=== PATIENT | male | born 1980 | race Two or more races ===

== ENCOUNTER 2023-08-16 09:11 | Emergency (ER) | payer BC, OTHER ==
[~2023-08-16] VITALS: Ht 180.3 cm; Wt 97.4 kg
[2023-08-16 10:24] VITALS: BP 134/98; PULSE 68; RESP 18; TEMP 98.2; O2SAT 98
[2023-08-16] MEDS ORDERED: INDO50SU RE ×2 (10:40)
[2023-08-16] MEDS ORDERED: COLC1CAP PO (10:40)
[2023-08-16] MEDS ORDERED: methylPREDNISolone SOD SUCC 125 MG/2 ML VL IM ONE (10:45)
[2023-08-16] MEDS ORDERED: KETOROLAC TROMETH 60MG/2ML VIAL IM ONE (10:45)
[2023-08-16] MEDS ORDERED: INDO-34 PO (11:08)
== END 2023-08-16 11:13 | disposition home or self-care (01) ==
LOC: ER 09:11
DX: M10.9 Gout, unspecified (principal); Z79.899 Other long term (current) drug therapy
CPT/HCPCS: 73562; 96372; 99284; J1885; J2930

== ENCOUNTER 2023-10-02 19:22 | Emergency (ER) | payer BC ==
[~2023-10-02] VITALS: Ht 180.3 cm; Wt 100.0 kg
[~2023-10-02 19:22] MED LIST: COLC1CAP PO; INDO-34 PO
[2023-10-02] MEDS ORDERED: cefTRIAXone SOD 1,000 MG VL IM ONE (20:15)
[2023-10-02] MEDS ORDERED: CEPH500C PO (20:27)
[2023-10-02 20:35] VITALS: BP 117/70; PULSE 90; RESP 12; TEMP 98.9; O2SAT 97
== END 2023-10-02 20:45 | disposition home or self-care (01) ==
LOC: ER 19:22
DX: M70.21 Olecranon bursitis, right elbow (principal); L03.113 Cellulitis of right upper limb; M10.9 Gout, unspecified; Z79.899 Other long term (current) drug therapy; Y93.89 Activity, other specified
CPT/HCPCS: 96372; 99283; J0696

== ENCOUNTER 2023-11-10 09:49 | Emergency (ER) | payer BC ==
[~2023-11-10] VITALS: Ht 180.3 cm; Wt 99.4 kg
[~2023-11-10 09:49] MED LIST changes: +CEPH500C PO
[2023-11-10 11:00] VITALS: BP 153/68; PULSE 68; RESP 16; TEMP 97.9; O2SAT 97
[2023-11-10] MEDS: methylPREDNISolone SOD SUCC 125 MG/2 ML VL IM ONE (11:30)
[2023-11-10] MEDS: KETOROLAC TROMETH 60MG/2ML VIAL IM ONE (11:31)
[2023-11-10 11:32] LABS: Basophils # (auto) 0 10 ^3/uL (0-0.2); Basophils % (auto) 0.5 % (0.0-2.0); Eosinophils # (auto) 0.2 10 ^3/uL (0-0.8); Eosinophils % (auto) 2.8 % (0.0-7.0); Hematocrit 40.8 % (41.0-53.0); Hemoglobin 13.9 g/dL (13.5-17.5); Lymphocytes # (auto) 1.5 10 ^3/uL (0.4-5.4); Lymphocytes % (auto) 22.2 % (10.0-50.0); Mean Corpuscular Hgb Conc. 34.1 g/dL (32.0-36.0); Monocytes # (auto) 0.4 10 ^3/uL (0-1.3); Monocytes % (auto) 6.4 % (0.0-12.0); Neutrophils # (auto) 4.6 10 ^3/uL (1.6-8.6); Neutrophils % (auto) 68.1 % (37.0-80.0); Nucleated Red Blood Cells % 0.2 %; Red Cell Distribution Width 13.7 % (11.8-14.3); White Blood Cell 6.8 10^3/uL (4.4-10.8)
[2023-11-10 11:48] LABS: Chloride 109 mmol/L (98-107); Potassium 4.5 mmol/L (3.5-5.1); Sodium 141 mmol/L (136-145)
[2023-11-10 11:49] LABS: Anion Gap 5 (5-15); Calcium 9.5 mg/dL (8.7-10.4); Carbon Dioxide 27 mmol/L (20-30)
[2023-11-10 11:53] LABS: Uric Acid 7.6 mg/dL (3.7-9.2)
[2023-11-10 11:54] LABS: BUN/Creatinine Ratio 9.3 (10.0-20.0); Blood Urea Nitrogen 8 mg/dL (9-23); Glucose 94 mg/dL (74-106)
[2023-11-10] MEDS ORDERED: PRED20TA2 PO (12:43)
[2023-11-10] MEDS ORDERED: TRAM50TA2 PO (12:43)
== END 2023-11-10 12:49 | disposition home or self-care (01) ==
LOC: ER 09:49
DX: M23.8X2 Other internal derangements of left knee (principal); M10.062 Idiopathic gout, left knee; Z79.899 Other long term (current) drug therapy
CPT/HCPCS: 36415; 73562; 80048; 84550; 85025; 96372; 99284; J1885; J2930